=== PATIENT | female | born 1960 | race African-American/Black ===

== ENCOUNTER 2018-06-04 10:50 | Emergency (ER) | payer OTHER ==
[~2018-06-04] VITALS: Ht 162.6 cm; Wt 104.3 kg
[~2018-06-04 10:50] MED LIST: ACETAMINOPHEN325 M1 PO; CARVEDILOL6.25 MG PO; COLACE100 MG; ESTROVEN REGU400 MCG PO; FERROUS SULFAT325 M1 PO; FOLIC ACID 40400 MC1 PO; HYDROCHLOROTHIA25 M1 PO; NORVASC 5 MG TAB5 MG PO; PREVACID 24HR15 MG PO; SENOKOT-S1 TA1
[2018-06-04] MEDS ORDERED: COZAAR100 MG PO (12:29)
[2018-06-04] MEDS ORDERED: ATORVASTATIN CA40 MG PO (12:29)
[2018-06-04] MEDS ORDERED: HYDROCHLOROTHIA25 M2 PO (12:29)
[2018-06-04] MEDS ORDERED: ASPIR 8181 MG PO (12:30)
[2018-06-04] MEDS ORDERED: MELATONIN1 MG PO (12:30)
[2018-06-04] MEDS ORDERED: ZANTAC 150MG T150 MG PO (12:30)
[2018-06-04] MEDS ORDERED: MEDROLDOSEPACK PO (12:43)
[2018-06-04] MEDS ORDERED: CYCLOBENZAPRINE5 MG PO (12:43)
[2018-06-04] MEDS ORDERED: NORCO 5-325 TA1 EACH PO (12:52)
[2018-06-04 13:06] VITALS: BP 145/71
== END 2018-06-04 13:07 | disposition home or self-care (01) ==
LOC: ER 10:50
DX: G56.03 Carpal tunnel syndrome, bilateral upper limbs (principal); M54.5 Low back pain; I10 Essential (primary) hypertension; F41.9 Anxiety disorder, unspecified; K21.9 Gastro-esophageal reflux disease without esophagitis; Z77.22 Contact with and (suspected) exposure to environmental tobacco smoke (acute) (chronic); Z90.49 Acquired absence of other specified parts of digestive tract; Z85.038 Personal history of other malignant neoplasm of large intestine